=== PATIENT | male | born 1985 | race Caucasian/White ===

== ENCOUNTER 2016-11-16 07:49 | Emergency (ER) | payer MEDICAID ==
--- NOTE | ~2016-11-16 | ER ---
PATIENT'S NAME: ASHLEY MEJÍA [facility] AGE: 30 Y [address] ROOM: [place] [address] LOCATION: ED ADMIT DATE: 11/16/2016 ER/Outpatient Report DISCHARGE DATE: 11/16/2016 FAMILY PHYSICIAN: Lauren Krause MD ATTENDING PHYSICIAN: Don Delgado CHIEF COMPLAINT: Thumb pain. HISTORY OF PRESENT ILLNESS: The patient states that on Friday, he smashed his thumb in a dump truck. He was seen thought in [place]. They thought maybe there is a fracture and placed some trephination holes in the nail bed. He was to wear a splint. The splint came off last night. He woke up with swelling in his thumb and it was a lot worse today. He denies any other issues at this time. PAST MEDICAL HISTORY: Documented on the record and reviewed by me. SOCIAL HISTORY: Documented on the record and reviewed by me. MEDICATIONS: Documented on the record and reviewed by me. ALLERGIES: DOCUMENTED ON THE WRITTEN RECORD AND REVIEWED BY ME. REVIEW OF SYSTEMS: All systems were reviewed and negative except as noted in the HPI. PHYSICAL EXAMINATION: VITAL SIGNS: Blood pressure 140/92, pulse 101, respiratory rate is 18, temperature 97.6, SpO2 is 96% on room air. Pain is 10/10. GENERAL: Age-appropriate male, sitting in the exam table in obvious pain holding the right hand above his head. NEUROLOGIC: The patient is awake and alert. GCS is 15. No obvious abnormalities. HEENT: Normocephalic, atraumatic. Eyes are PERRL. Oropharynx is clear. NECK: Supple. Trachea is midline. CHEST/HEART: Regular rate and rhythm with no murmurs. LUNGS: Clear to auscultation bilateral with no rhonchi, wheezes, or rales. ABDOMEN: Benign. BACK: Benign. EXTREMITIES: Benign except for the right thumb. There is marked swelling PATIENT'S NAME: ASHLEY MEJÍA [facility] AGE: 30 Y [address] ROOM: [place], [place] [address] LOCATION: [facility] ADMIT DATE: 11/16/2016 ER/Outpatient Report DISCHARGE DATE: 11/16/2016 FAMILY PHYSICIAN: Lauren Krause MD ATTENDING PHYSICIAN: Don Delgado throughout the thumb. It is not particularly warm. There is a large subungual hematoma. There is brisk capillary refill throughout. The swelling is poorly localized. The patient still has active and passive range of motion of the IP and MCP joints. It is very tender to the touch diffusely. No other acute abnormalities. No evidence of tenosynovitis. SKIN: Warm, dry, and intact otherwise. LABS AND X-RAYS: X-rays of the right hand were obtained. I do not appreciate any fractures, radiology read pending. Impression right subungual hematoma. EMERGENCY DEPARTMENT COURSE: The patient was seen and evaluated. X-rays obtained to ensure that there was not an actual fracture or displacement. I did not see anything unusual on my review of the images. At that time, I did proceed with nail bed trephination. As able to relieve significant pressure and swelling with significant amounts of blood being released, I did trephinate the nail bed toward the posterior aspects. Blood did spray out several inches at that time. The patient had near instant relief at that time. Ice was placed on the hand throughout the time of his ER visit. He was given ibuprofen as he is driving today. [place] given for any persistent breakthrough pain. He will work as tolerated. Follow up as needed. Return immediately if worsening. MD CARLY ELMORE/franki /[id number] d: 11/16/161949 t: 11/26/16 1733, OUTPATIENT REPORT
== END 2016-11-16 09:07 | disposition disaster alternative care site (69) ==
LOC: GMED 07:49
PROC: 0X9J0ZZ Drainage of Right Hand, Open Approach (ICD-10-PCS; principal; 2016-11-16)
DX: S60.111A Contusion of right thumb with damage to nail, initial encounter (principal); F17.210 Nicotine dependence, cigarettes, uncomplicated; Z88.0 Allergy status to penicillin; W23.0XXA Caught, crushed, jammed, or pinched between moving objects, initial encounter